=== PATIENT | male | born 1975 | race Caucasian/White ===

== ENCOUNTER 2021-12-15 08:09 | Outpatient (RCR) | payer MEDICAID, SELFPAY | END 2022-01-17 13:52 | disposition home or self-care (01) | LOC: HO.WCC 08:09 | PROVIDERS: PCP Physician Assistant; Visit Provider Surgery | DX: T81.31XD Disruption of external operation (surgical) wound, not elsewhere classified, subsequent encounter (principal); Z79.891 Long term (current) use of opiate analgesic; Z79.899 Other long term (current) drug therapy; Z93.2 Ileostomy status | CPT/HCPCS: 99212; 99213 ==